=== PATIENT | male | born 1970 | race Caucasian/White ===

== ENCOUNTER 2018-07-09 01:06 | Emergency (ER) | payer OTHER, SELFPAY ==
[2018-07-09 01:07] VITALS: BP 116/84; PULSE 47; RESP 16; TEMP 36.8; O2SAT 99; BMI 26.4
--- NOTE | 2018-07-09 01:21 | RAD_ITS ---
HISTORY: syncope EXAM:XR Chest 1 View portable COMPARISON: 12/27/2016 FINDINGS: EKG leads in place. No significant change. Normal heart and mediastinum. No vascular congestion, pleural effusion, or acute pulmonary infiltration. No pneumothorax. The bony thorax appears intact. RAD/Chest 1 View (Portable) IMPRESSION: Normal chest. at 0142 Reported and signed by: Hector Horner MD Electronically Signed: Hector Horner, at 1:41 EDT Tel , Service support ,
--- NOTE | 2018-07-09 01:21 | EKG12_ITS ---
Test Reason : Blood Pressure : / mmHG Vent. Rate : 044 BPM Atrial Rate : 044 BPM P-R Int : 160 ms QRS Dur : 088 ms QT Int : 492 ms P-R-T Axes : 037 062 045 degrees QTc Int : 420 ms Marked sinus bradycardia with sinus arrhythmia Abnormal ECG Confirmed by NURY MORFIN ([id number]), digital editor NGOZI CUEVA ([id number] on 07/13/2018 2:52:12 PM Referred By: NOEMI Confirmed By:PERCY MORFIN
[2018-07-09 01:30] LABS: Absolute Lymphocyte Count 2.67 X10^3/ul (0.83-4.51); Absolute Neutrophil Count 2.8 X10^3/uL (2.0-7.7); Basophil# 0.02 X10^3/uL; Basophil% 0.3 % (0-1); Eosinophil# 0.06 X10^3/uL; Hematocrit 40.4 % (40-54); Hemoglobin 14.3 g/dl (13.0-16.5); Lymphocyte # 2.67 X10^3/ul (4.0); Lymphocyte % 44.2 % (19-41); Mean Corp Hgb Conc 35.4 g/gl (32-36); Mean Corpuscular Hgb 30.4 pg (27.0-32.0); Mean Corpuscular Volume 85.8 fL (80-94); Mean Platelet Vol. 9.5 fl (6.2-12.0); Monocyte# 0.51 X10^3/uL; Monocyte% 8.4 % (0-10); Neutrophil # 2.77 X10^3/uL (2.7-7.7); Neutrophil % 45.9 % (47-70); Platelet Count 177 K/mm3 (150-450); Red Blood Count 4.71 M/mm3 (4.6-6.2)
[2018-07-09 01:31] LABS: POSITIVE COUNT NO; POSITIVE DIFFERENTIAL NO; POSITIVE MORPHOLOGY NO
[2018-07-09] MEDS: 0.9% Normal Saline 1,000 ML 150 ML IV (01:33)
--- NOTE | 2018-07-09 01:43 | ED.VISSUMM ---
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 Patient states he awoke at the fire station earlier this morning. He thought he needed to use the restroom. He developed a hot sensation, felt clammy and sweaty. He had near syncopal episode and fell to the floor. He was able to get up and get to a coworkers room where he stumbled and fell to the floor. Patient states after lying on the floor for possibly 30 seconds symptoms seem to improve. He is able to get up and walk to the ambulance. Twelve-lead EKG revealed sinus bradycardia. Blood pressure at that time was approximately 112 systolic. Patient denies any chest pain or palpitations. He denies any medications or supplements. Patient reports having a similar episode at his home approximate 2-1/2 weeks ago. In the interval period he had not had any symptoms. Physical Examination: Blood pressure is 116/84, temperature 98.3, heart rate 47, respiratory rate 16, pulse ox 99% on room air. Patient sitting upright in bed no acute distress. Heart is bradycardic and regular. Lungs sounds clear. Abdomen is soft nontender. Test Results: EKG is sinus bradycardia at 44 bpm. No acute ischemia. Portable chest x-ray unremarkable. CBC is normal. Chemistry studies significant for BUN 22 and a creatinine 1.44. His creatinine appears stable over the past 2 years. Magnesium is normal. TSH is slightly elevated at 4.18. Emergency Department Course and Treatment: Patient remains with variable heart rates between 39 and 60 while in the emergency room. He was asymptomatic with bradycardia. T3 and free T4 were added and he will follow-up with his primary care physician regarding these results. I spoke with cardiology. Patient will be given a 24-hour Holter monitor to be placed now. He is to be off work the rest of today. He will follow-up in the office with Dr. Angel. Treatment Plan: [] Disposition: Discharge Impression: 1. Near syncope 2. Bradycardia This note was generated with [employer] software. It may contain incorrect words, spelling, and punctuation that were not noted in review of the chart prior to signing ED Disposition - Plan for ED Patient: Disposition: Home or Assisted Living Instructions: ED Near Syncope Vasovagal, ED Bradycardia Referrals: Louie Angel MD [STAFF PHYSICIAN] - As soon as possible Efe Tyson MD [Primary Care Provider] - 5-7 Days
--- NOTE | 2018-07-09 01:46 | ED.DCSUM_ITS ---
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 Patient states he awoke at the fire station earlier this morning. He thought he needed to use the restroom. He developed a hot sensation, felt clammy and sweaty. He had near syncopal episode and fell to the floor. He was able to get up and get to a coworkers room where he stumbled and fell to the floor. Patient states after lying on the floor for possibly 30 seconds symptoms seem to improve. He is able to get up and walk to the ambulance. Twelve-lead EKG revealed sinus bradycardia. Blood pressure at that time was approximately 112 systolic. Patient denies any chest pain or palpitations. He denies any medications or supplements. Patient reports having a similar episode at his home approximate 2-1/2 weeks ago. In the interval period he had not had any symptoms. Physical Examination: Blood pressure is 116/84, temperature 98.3, heart rate 47, respiratory rate 16, pulse ox 99% on room air. Patient sitting upright in bed no acute distress. Heart is bradycardic and regular. Lungs sounds clear. Abdomen is soft nontender. Test Results: EKG is sinus bradycardia at 44 bpm. No acute ischemia. Portable chest x-ray unremarkable. CBC is normal. Chemistry studies significant for BUN 22 and a creatinine 1.44. His creatinine appears stable over the past 2 years. Magnesium is normal. TSH is slightly elevated at 4.18. Emergency Department Course and Treatment: Patient remains with variable heart rates between 39 and 60 while in the emergency room. He was asymptomatic with bradycardia. T3 and free T4 were added and he will follow-up with his primary care physician regarding these results. I spoke with cardiology. Patient will be given a 24-hour Holter monitor to be placed now. He is to be off work the rest of today. He will follow-up in the office with Dr. Angel. Treatment Plan: [] Disposition: Discharge Impression: 1. Near syncope 2. Bradycardia This note was generated with [employer] software. It may contain incorrect words, spelling, and punctuation that were not noted in review of the chart prior to signing ED Disposition - Plan for ED Patient: Disposition: Home or Assisted Living Instructions: ED Near Syncope Vasovagal, ED Bradycardia Referrals: Louie Angel MD [STAFF PHYSICIAN] - As soon as possible Efe Tyson MD [Primary Care Provider] - 5-7 Days
[2018-07-09 01:49] LABS: Anion Gap 7 (5-15); BUN 22 mg/dL (7-18); BUN/Creat Ratio 15.3 RATIO (10-20); Calcium,Total 8.5 mg/dL (8.5-10.1); Chloride 105 mmol/L (98-107); Creatinine, Serum 1.44 mg/dL (0.70-1.30); EST Glomerular Filtration Rate 56 mL/min (>60); Est Glom Filt Rate - Afr Amer 68 mL/min (>60); Estimated Creatinine Clearance 62.01 ml/min; Glucose 102 mg/dL (74-106); Potassium 3.7 mmol/L (3.5-5.1); Sodium Level 139 mmol/L (136-145); Thyroid Stim Hormone (TSH) 4.18 uIU/mL (0.358-3.74)
[2018-07-09] MEDS: 0.9% Normal Saline 1,000 ML 999 ML IV (02:02)
[2018-07-09 02:19] LABS: T4 Free Direct 1.05 ng/dL (0.76-1.46)
[2018-07-09 02:35] LABS: T3 Total - Triiodothyronine 0.73 ng/mL (0.6-1.81)
[2018-07-09 03:01] VITALS: BP 109/77; PULSE 58; RESP 16; O2SAT 99
== END 2018-07-09 03:01 | disposition home or self-care (01) ==
PROVIDERS: Emergency Provider Emergency Medicine; Family Provider Family Medicine; PCP Family Medicine
DX: R55 Syncope and collapse (principal); R00.1 Bradycardia, unspecified
CPT/HCPCS: 71045; 80048; 83735; 84439; 84443; 84480; 85025; 93005; 96360; 96361; 99285; J7030; A4216

== ENCOUNTER → 2018-07-09 02:23 | Outpatient (CLI) | payer OTHER, SELFPAY ==
[2018-07-09 01:07] VITALS: BMI 26.4
== END ==
PROVIDERS: Family Provider Family Medicine; PCP Family Medicine; Referring Provider Emergency Medicine; Visit Provider Emergency Medicine
DX: R00.1 Bradycardia, unspecified (principal); R55 Syncope and collapse
CPT/HCPCS: 93225; 93226

== ENCOUNTER → 2018-08-06 08:59 | Outpatient (CLI) | payer OTHER, SELFPAY ==
[2018-07-29 08:04] VITALS: BMI 26.3
--- NOTE | 2018-08-07 13:39 | PCM.TILTTABL ---
- Summary Pre Test Resting HR: 77 Pre Test Resting BP: 126/77 Minimum Test HR: 52 Maximum Test HR: 109 Minimum Test BP: 100/56 Maximum Test BP: 133/71 Physician Tilt Table Report - Patient's Physicians Primary Care Physician: Efe Tyson Indications/Diagnosis: Syncope Procedure Comments: The patient was brought to the noninvasive lab in the postabsorptive nonsedated state. The patient was placed in the recumbent position. The initial heart rate was 77 bpm with a blood pressure of 126/77 mmHg with a EKG demonstrating normal sinus rhythm. The patient was then positioned in the 70 degree head upright tilt position. This was maintained for 20 minutes. Patient maintained normal heart rate and blood pressure with no symptomatology. The patient was then laid back down and given 1 tab let of sublingual nitroglycerin. The patient was then put back in the head upright tilt position. The lowest heart rate recorded was 52 bpm with a blood pressure 100/56 mmHg. The patient did not feel any significant symptomatology. The test was then terminated. Summary: Negative head upright tilt table test with no vasodepressive or vasovagal events.
[2018-08-07 13:42] VITALS: BP 100/56; BP 126/77; BP 133/71
== END ==
PROVIDERS: Family Provider Family Medicine; PCP Family Medicine; Referring Provider Internal Medicine Cardiovascular Disease; Visit Provider Internal Medicine Cardiovascular Disease
DX: R55 Syncope and collapse (principal)
CPT/HCPCS: 93660; J7040; A4216

== ENCOUNTER → 2018-08-11 13:49 | Outpatient (CLI) | payer OTHER, SELFPAY ==
[2018-07-29 08:04] VITALS: BMI 26.3
[2018-07-29 10:48] LABS: Absolute Lymphocyte Count 1.48 X10^3/ul (0.83-4.51); Absolute Neutrophil Count 5.2 X10^3/uL (2.0-7.7); Basophil# 0.01 X10^3/uL; Basophil% 0.1 % (0-1); Eosinophil# 0.04 X10^3/uL; Eosinophils% 0.5 % (0-5); Hematocrit 42.3 % (40-54); Hemoglobin 14.6 g/dl (13.0-16.5); Lymphocyte # 1.48 X10^3/ul (4.0); Lymphocyte % 19.8 % (19-41); Mean Corp Hgb Conc 34.5 g/gl (32-36); Mean Corpuscular Hgb 30.2 pg (27.0-32.0); Mean Corpuscular Volume 87.4 fL (80-94); Mean Platelet Vol. 8.8 fl (6.2-12.0); Monocyte% 9.4 % (0-10); Neutrophil # 5.22 X10^3/uL (2.7-7.7); Neutrophil % 70.1 % (47-70); Platelet Count 290 K/mm3 (150-450); RBC Distribution Width CV 13.2 % (11.6-14.6); RBC Distribution Width SD 41.7 fl (35.1-43.9); Red Blood Count 4.84 M/mm3 (4.6-6.2); White Blood Count 7.5 K/mm3 (4.4-11.0)
[2018-07-29 10:49] LABS: POSITIVE COUNT NO; POSITIVE DIFFERENTIAL NO; POSITIVE MORPHOLOGY NO
[2018-07-29 11:12] LABS: Anion Gap 6 (5-15); BUN 13 mg/dL (7-18); BUN/Creat Ratio 10.2 RATIO (10-20); Calcium,Total 8.8 mg/dL (8.5-10.1); Chloride 104 mmol/L (98-107); Creatinine, Serum 1.28 mg/dL (0.70-1.30); EST Glomerular Filtration Rate 64 mL/min (>60); Est Glom Filt Rate - Afr Amer 78 mL/min (>60); Glucose 95 mg/dL (74-106); Potassium 4.4 mmol/L (3.5-5.1); Sodium Level 139 mmol/L (136-145)
--- NOTE | 2018-08-11 13:50 | ECHOD_ITS ---
Reason For Study: Near syncope, R/O ASD Procedure This was a 2D Doppler, Color Flow transthoracic echocardiogram. Exam performed in department. Left Ventricle Normal LV size. Left ventricular systolic function is normal. The estimated ejection fraction is 55 %. Normal diastology for age. No regional wall motion abnormalities noted. Right Ventricle Normal RV size. Normal systolic function. Atria Normal left atrium. Normal right atrium. Patent foramen ovale. Mitral Valve Bileaflet diffuse mitral valve thickening. Mild (1+) mitral valve insufficiency. Tricuspid Valve Normal tricuspid valve. Aortic Valve Normal aortic valve. Trisinus/trileaflet aortic valve. Pulmonic Valve Normal pulmonic valve. Great Vessels Mildly dilated aortic root. The pulmonary artery is normal size. Normal inferior vena cava. Pericardium/Pleural No pericardial effusion. Medication 22 gauge I.V. with prn adaptor inserted into right arm. Performed a rapid injection of agitated mix of 9 cc saline and 1cc air to assess for atrial septal defect. MMode/2D Measurements & Calculations LVIDd: 5.0 cm IVSd: 1.0 cm Ao root diam: 3.4 cm LVIDs: 3.2 cm LVPWd: 0.97 cm RVDd: 3.8 cm FS: 35.9 % LAV(MOD-bp): 50.9 ml LVAd ap4: 36.3 cm2 SV(MOD-sp4): 60.0 ml LAV(MOD-bp) Indexed: 26.7 ml/m2 EDV(MOD-sp4): 122.4 ml LAV(MOD-sp2): 41.2 ml EDV(sp4-el): 122.9 ml LAV(MOD-sp4): 53.7 ml LVAs ap4: 23.8 cm2 ESV(MOD-sp4): 62.4 ml ESV(sp4-el): 61.7 ml EF(MOD-sp4): 49.0 % EF(sp4-el): 49.8 % SV(sp4-el): 61.2 ml LA A4 area: 18.6 cm2 LA dimension(2D): 3.2 cm RA A4 area: 16.2 cm2 Doppler Measurements & Calculations MV E max everett: 82.9 cm/sec Lat Peak E' Everett: 14.2 cm/sec Med Peak E' Everett: 10.2 cm/sec MV A max everett: 51.0 cm/sec E/E' lat: 5.9 E/E' med: 8.1 MV E/A: 1.6 Ao V2 max: 141.6 cm/sec LV V1 max: 118.5 cm/sec PA V2 max: 108.6 cm/sec Ao max P.0 mmHg LV V1 max P.6 mmHg Interpretation Summary Normal LV size. Left ventricular systolic function is normal. The estimated ejection fraction is 55 %. Normal diastology for age. Patent foramen ovale. Ordering Physician: Louie Angel Referring Physician: Sanjuanita Tyson M.D. Performed By: Lyndsay Hampton RDCS
== END ==
PROVIDERS: Family Provider Family Medicine; PCP Family Medicine; Referring Provider Internal Medicine Cardiovascular Disease; Visit Provider Internal Medicine Cardiovascular Disease
DX: R55 Syncope and collapse (principal); Q21.1 Atrial septal defect
CPT/HCPCS: 36415; 80048; 85025; 93306; A4216

== ENCOUNTER → 2019-05-04 08:49 | Outpatient (CLI) | payer OTHER, SELFPAY ==
[2019-04-26 10:57] VITALS: BMI 25.7
--- NOTE | 2019-05-04 08:52 | BI_ITS ---
MAMMOGRAPHY - BILATERAL DIAGNOSTIC REASON FOR EXAM: Male, 48 years old. 3 month history of right breast lump. PERTINENT HISTORY: Non-contributory. TECHNIQUE: Digital bilateral breast mckenzie (3D mammographic acquisition) in the CC and MLO projections. 2-D mediolateral oblique (MLO) and craniocaudad (CC) views of both breasts were obtained. CAD: Full Field Digital Mammography with Computer Added Detection was performed. COMPARISON: None. Baseline examination. FINDINGS: Breast Composition: Focal soft tissue density is seen in the retroareolar region of the right breast. This corresponds to the palpable abnormality. There are no dominant masses or suspicious calcifications. No other significant abnormalities are identified. BI/DIAG MAMM W/CAD, BILAT IMPRESSION: Asymmetrical glandular tissue with more breast tissue is seen in the retroareolar region of the right breast as compared to the left side. This most likely represents gynecomastia. Correlation with ultrasound is recommended. ASSESSMENT CATEGORY: BIRADS Category 0: Incomplete. Need additional imaging evaluation. A letter regarding these results will be sent to the patient by the facility within 30 days. Approximately 10% of breast cancers are not detected by mammography. A normal mammogram should not delay biopsy of a clinically suspicious abnormality. Electronically Signed: Jori Bella, at 12:35 EDT , Service support ,
--- NOTE | 2019-05-04 09:56 | US_ITS ---
STUDY: ULTRASOUND BREAST - RIGHT REASON FOR EXAM: Male, 48 years old. Palpable lump in the right breast. TECHNIQUE: Axial and longitudinal images of the RIGHT breast were performed with a high resolution ultrasound transducer. # OF IMAGES: 28 COMPARISON: Comparison is made with prior mammogram done earlier in the day. FINDINGS: RIGHT Breast: The palpable abnormality corresponds to a 1.7 cm x 1.7 cm x 0.5 cm slightly inhomogeneous nodular density. A biopsy is recommended. US/Breast Limited Unilateral IMPRESSION: The palpable abnormality corresponds to a 1.7 cm x 1.7 cm x 0.5 cm slightly inhomogeneous nodular density. A biopsy is recommended for further evaluation. ASSESSMENT CATEGORY: BIRADS Category 4: Suspicious - Biopsy Should Be Considered. A letter regarding these results will be sent to the patient by the facility within 30 days. Electronically Signed: Jori Bella, at 15:34 EDT , Service support ,
== END ==
PROVIDERS: PCP Family Medicine; Referring Provider Family Medicine; Visit Provider Family Medicine
DX: N63.10 Unspecified lump in the right breast, unspecified quadrant (principal)
CPT/HCPCS: 76642; 77062; 77066; G0279

== ENCOUNTER → 2019-05-07 08:45 | Outpatient (CLI) | payer OTHER, SELFPAY ==
[2019-05-07 08:35] VITALS: BMI 25.7
== END ==
PROVIDERS: PCP Family Medicine; Referring Provider Surgery; Visit Provider Surgery
DX: N63.10 Unspecified lump in the right breast, unspecified quadrant (principal)
CPT/HCPCS: 88305

== ENCOUNTER → 2021-07-12 | Outpatient (CLI) | payer OTHER, SELFPAY ==
[2021-07-12 19:04] LABS: HIV - WCH Non-Reactive (Nonreactive); Syphilis Antibodies Non-reactive
[2021-07-12 21:26] LABS: Chlamydia Trachomatis by PCR Negative (Negative); Neisserai gonorrhoeae by PCR Negative (Negative); Probe Check PASS; Sample Adequacy Control PASS; Specimen Processing Control PASS
[2021-07-14 13:09] LABS: HSV 1 IgG < 0.91 index (0.00-0.90); HSV 2 IgG < 0.91 index (0.00-0.90)
== END | disposition home or self-care (01) ==
LOC: MFPLAB 16:23
PROVIDERS: PCP Family Medicine; Referring Provider Family Medicine; Visit Provider Family Medicine
DX: A64 Unspecified sexually transmitted disease (principal)
CPT/HCPCS: 36415; 86695; 86696; 86703; 86780; 87491; 87591

== ENCOUNTER 2022-05-07 07:57 | Day surgery (SDC) | payer OTHER, SELFPAY ==
[2022-05-07] VITALS (7 sets, daily range): BP systolic 79–121; BP diastolic 38–78; PULSE 55–64; RESP 16; TEMP 36.2–36.5; O2SAT 55–100; BMI 25.1
[2022-05-07] MEDS: Lactated Ringers 1,000 ML 15 ML IV (08:22)
--- NOTE | 2022-05-07 08:51 | H&P.OPEN ---
HPI - General HPI Narrative FILIBERTO URBINA, is a 51 M who presents for screening colonoscopy. Patient has never had a colonoscopy in the past. He denies any abdominal pain or blood in stool. He has no family history of colon cancer. COUNTS INCLUDE 234 BEDS AT THE [facility] Medical History (Updated 05/01/22 @ 11:01 by Monet Hauser) Alcohol use Bradycardia Bradycardia Cardiology follow-up encounter Heartburn History of deviated nasal septum History of echocardiogram Near syncope (06/2018) Non-smoker Normal Holter exam Patent foramen ovale Snoring Syncope Tilt table evaluation Home Medications muitpqig-hychmvfy-kilui acid 400 mcg-vit K 20 mcg-lycop 300 mcg tablet (One-A-Day Men's Multivitamin) 1 tab PO DAILY 03/18/22 [History Last Taken Unknown] Allergy/AdvReac Type Severity Reaction Status Date / Time No Known Allergies Allergy Verified 05/07/22 08:19 Family History (Updated 05/07/19 @ 08:28 by Leann Weller) Father Cancer non hodgkins Social History (Updated 03/18/22 @ 13:43 by Chiquita Daigle) current occupational status: employed 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 Smoking Status: Never smoker alcohol intake: current alcohol intake frequency: holidays/special occasions only caffeine: Yes Type: coffee and other Number of servings: 3 Past Medical/Surgical History Planned Operation Planned Operative Procedure/s: CSCOPE OA Previous Hospitalizations/Surgeries HX Hospitalizations: No Any Problems With Anesthesia: No You/Your Family Experience Fever (Hyperthermia) With Anes: No Cholinesterase deficiency: No Cardiovascular Hx of Irregular Heartbeat and/or Afib: No Hx Heart Attack: No Hx Congestive Heart Failure: No Hx Hypertension: No Hx Pacemaker: No Respiratory Hx Chronic Obstructive Pulmonary Disease (COPD): No Hx Asthma: No Hx Emphysema: No Hx Sleep Apnea: No Hx Respiratory Tract Infection/Cold (presently): No Do You Snore Loudly (louder than talking or can be heard): Yes Do You Often Feel Tired/ Fatigued/ Sleepy Dring Daytime?: No Has Anyone Observed You Stop Breathing During Sleep?: No Result (for STOP score): Negative Smoking Status: Never smoker Gastrointestinal Hx Gastroesophageal Reflux: No Hx Ulcer: No Neurological Hx Seizures: No Hx Head/Neck Injury: No Hx Headaches: No Hx Back Injury/Pain: No Does patient have nerve stimulator: No Reproduction : No Miscellaneous Recent Exposure to Contagious Disease: No Allergies No Known Allergies Allergy (Verified 05/07/22 08:19) Discharge Is Pt Admitted From a Detention, or a Longterm: No After D/C, Where Do you Plan to Go: Return Home Vital Signs Vital Signs Vital Signs: 05/07/22 08:19 05/07/22 08:19 Temperature 97.2 F L Temperature Source Temporal Pulse Rate 55 L Respiratory Rate 16 Respiratory Pattern Normal Blood Pressure 121/78 H Blood Pressure Mean 92 Blood Pressure Source Monitor Blood Pressure Position Semi-Fowlers Blood Pressure Location Left Arm Pulse Ox 55 Oxygen Delivery Method Room Air Weight Weight: 165 lb 5.547 oz Body Mass Index (BMI) 25.1 Physical Exam Const alert and oriented x3 HEENT normocephalic Eyes PERRL Resp normal respiratory effort and normal air movement Cardio regular rate and regular rhythm GI soft to palpation, non-tender and non-distended Extremity normal to inspection Assessment & Plan Assessment/Plan (1) Encounter for screening for malignant neoplasm of colon: PLAN: I explained endoscopy in detail to the patient. I explained the risks including but not limited to stroke or heart attack with anesthesia, perforation of the GI tract, bleeding, infection. I explained that any of these could necessitate further emergency surgery. The patient understands and all questions were answered sufficiently. The patient wishes to proceed with procedure. Delbert Boyd MD Pager: [facility] [address] [place] [address], [address] [place] [address] Office: Surgery Risks - Colonoscopy Risks Include but are not Limited To: Risks include but are not limited to: Bleeding, perforation requiring further surgery, inability to complete colonoscopy requiring barium enema.
--- NOTE | 2022-05-07 09:23 | OP.COLON_ITS ---
Patient Name: Yeison Roberts Procedure Date: 05/07/2022 8:58 AM Date of : 1970 Age: 51 Procedure: Colonoscopy Indications: Screening for colorectal malignant neoplasm Providers: Delbert Boyd MD Referring MD: Delbert Boyd MD Medicines: Monitored Anesthesia Care Patient Profile: This is a 51 year old male. Refer to note in patient chart for documentation of history and physical. Last Colonoscopy: none. The patient's first colonoscopy is today. Complications: No immediate complications. Procedure: Pre-Anesthesia Assessment: - Prior to the procedure, a History and Physical was performed, and patient medications and allergies were reviewed. The patient's tolerance of previous anesthesia was also reviewed. The risks and benefits of the procedure and the sedation options and risks were discussed with the patient. All questions were answered, and informed consent was obtained. Prior Anticoagulants: The patient has taken no previous anticoagulant or antiplatelet agents. After reviewing the risks and benefits, the patient was deemed in satisfactory condition to undergo the procedure. After I obtained informed consent, the scope was passed under direct vision. Throughout the procedure, the patient's blood pressure, pulse, and oxygen saturations were monitored continuously. The Colonoscope was introduced through the anus and advanced to the cecum, identified by appendiceal orifice and ileocecal valve. The colonoscopy was performed without difficulty. The patient tolerated the procedure well. The quality of the bowel preparation was good. Scope In: 9:08:51 AM Scope Withdrawal Time 0 hours 6 minutes 4 seconds Scope Out: 9:18:18 AM Total Procedure Duration Time 0 hours 9 minutes 27 seconds Findings: The entire examined colon appeared normal on direct and retroflexion views. Impression: - The entire examined colon is normal on direct and retroflexion views. - No specimens collected. Recommendation: - Discharge patient to home. - Resume previous diet. - Continue present medications. - Repeat colonoscopy in 10 years for screening purposes. Procedure Code(s): --- Professional --- 33356, Colonoscopy, flexible; diagnostic, including collection of specimen(s) by brushing or washing, when performed (separate procedure) Diagnosis Code(s): --- Professional --- Z12.11, Encounter for screening for malignant neoplasm of colon CPT copyright 2017 [employer]. All rights reserved. The codes documented in this report are preliminary and upon petrologist review may be revised to meet current compliance requirements. Delbert Boyd MD 05/07/2022 9:22:30 AM This report has been signed electronically. Number of Addenda: 0 Note Initiated On: 05/07/2022 8:58 AM
--- NOTE | 2022-05-07 09:24 | OP.CCLET_ITS ---
05/07/2022 James Greene MD [address] [id number] Re : Colonoscopy procedure for Yeisonsarah Roberts Dear Dr. Greene This procedure was performed on Saturday, May 07, 2022. My impressions and recommendations are as follows: Impressions : - The entire examined colon is normal on direct and retroflexion views. - No specimens collected. Recommendations : - Discharge patient to home. - Resume previous diet. - Continue present medications. - Repeat colonoscopy in 10 years for screening purposes. My findings are described in the full procedure note, which is enclosed. If I can be of further assistance, please feel free to contact me at Doctor phone number(s): , Work: . Sincerely, Delbert Boyd MD 05/07/2022 9:22:30 AM This report has been signed electronically.
== END 2022-05-07 10:20 | disposition home or self-care (01) ==
LOC: EN 07:59 → AC 08:01
PROVIDERS: PCP Family Medicine; Referring Provider Surgery; Visit Provider Surgery
PROC: 0DJD8ZZ Inspection of Lower Intestinal Tract, Via Natural or Artificial Opening Endoscopic (ICD-10-PCS; CPT 45378; principal; 2022-05-07 08:55)
DX: Z12.11 Encounter for screening for malignant neoplasm of colon (principal)
CPT/HCPCS: G0121; J7120; J2405

== ENCOUNTER → 2022-11-28 | Outpatient (CLI) | payer OTHER, SELFPAY ==
[2022-11-28 09:31] LABS: Estradiol 44.1 pg/mL; Follicle Stimulating Hormone 3.3 mIU/mL; Luteinizing Hormone 3.9 mIU/mL; Prolactin 5.4 ng/mL; Thyroid Stim Hormone (TSH) 1.48 uIU/mL (0.358-3.74)
[2022-12-03 12:09] LABS: DHEA Sulfate 72.4 ug/dL (71.6-375.4); Sex Hormone-binding Globulin 64.6 nmol/L (19.3-76.4); Testosterone, % Free 1.52 % (1.50-4.20); Testosterone, Total 704 ng/dL (264-916)
== END | disposition home or self-care (01) ==
PROVIDERS: PCP Family Medicine; Visit Provider Registered Nurse
DX: E29.1 Testicular hypofunction (principal); R53.83 Other fatigue; R68.82 Decreased libido; R63.5 Abnormal weight gain; R39.16 Straining to void; Z12.5 Encounter for screening for malignant neoplasm of prostate
CPT/HCPCS: 36415; 82627; 82670; 83001; 83002; 84146; 84270; 84402; 84403; 84443; 82626